=== PATIENT | male | born 1955 | race Caucasian/White ===

== ENCOUNTER → 2021-01-11 | Day surgery (SDC) | payer MEDICARE, MEDICAID ==
[2021-01-04 15:11] LABS: BASOPHILS % (AUTO) 0.4 % (0-1); EOSINOPHILS # (AUTO) 0.3 X10'3 (0-0.9); EOSINOPHILS % (AUTO) 3.2 % (0-6); LYMPHOCYTES # (AUTO) 2.8 X10'3 (1.1-4.8); LYMPHOCYTES % (AUTO) 29.5 % (21-51); MEAN CORPUSCULAR HGB CONC 33.7 g/dL (33.0-36.5); MEAN PLATELET VOLUME 7.1 FL (7.4-10.4); MONOCYTES % (AUTO) 10.7 % (2-12); NEUTROPHILS # (AUTO) 5.4 X10'3 (1.8-7.7); NEUTROPHILS % (AUTO) 56.2 % (42-75); PRE OP HEMATOCRIT 41.5 % (42.0-52.0); PRE OP PLATELET COUNT 278 X10'3 (140-440); RED BLOOD COUNT 4.37 X10'6 (4.70-6.10)
[2021-01-04 15:29] LABS: ALBUMIN 3.5 G/DL (3.4-5.0); ALBUMIN/GLOBULIN RATIO 1.1 (1.1-1.5); ALKALINE PHOSPHATASE 101 IU/L (46-116); BLOOD UREA NITROGEN 10 MG/DL (7-18); BUN/CREATININE RATIO 10.5 (5.4-32.0); CALCIUM 8.6 MG/DL (8.5-10.1); CHLORIDE 105 MMOL/L (99-107); CREATININE 0.95 MG/DL (0.60-1.10); PRE OP ALT 16 U/L (30-65); PRE OP ANION GAP 9 (8-16); PRE OP AST 19 U/L (10-37); PRE OP BILIRUB, TOTAL 0.2 MG/DL (0.0-1.0); PRE OP GLUCOSE 114 MG/DL (70-104); PRE OP POTASSIUM 4.1 MMOL/L (3.4-5.1); PRE OP PROTIME 10.5 SECONDS (9.0-12.0); PRE OP SODIUM 140 MMOL/L (135-145); TOTAL CARBON DIOXIDE 25.9 MMOL/L (24-32); TOTAL PROTEIN 6.7 G/DL (6.4-8.2); eGFR 80 ML/MIN
[~2021-01-11] VITALS: Ht 175.3 cm; Wt 73.0 kg
[2021-01-11] VITALS (13 sets, daily range): BP systolic 135–155; BP diastolic 80–95
[~2021-01-11] MED LIST: AMI25T PO; DIVA-76 PO; DOCUMENT DATE & TIME OF BETA-BLOCKER PO ONE; DULO-31 PO; GABA300C PO; LACO100T2 PO; LIDOcaine 1% W/epiNEPHrine 1:100,000 20ml vial ONE; LIDOcaine 2% (20mg/ml) 5ml vial ONE; PHEN100C12; SIMV-45 PO; TRAZ50TA54 PO; cefTAZidime 1gm inj ONE; cocaine 4% topical solution 4ml bottle ONE; dexamethasone sod phosphate 10mg/ml inj ONE; famotidine 20mg tablet PO ONE; fentaNYL/PF 50MCG/1 ML 2ML syringe ONE; meperidine/PF 25mg/ml syringe IV PRN; midazolam 1 mg/ML 2ml injection ONE; morphine 2 MG/ML inj. syringe IV PRN; morphine 4 MG/ML inj SYRINge IV PRN; mupirocin 2% ointment 22GM ONE; ondansetron/PF 4mg/2ml inj IV PRN; ondansetron/PF 4mg/2ml inj ONE; oxymetazoline 15 ML nasal spray NS ONE; proCHLORperazine 10 MG/2 ml inj IV PRN; propofol inj 20 ML IV ONE; ringers solution, lacted 1,000 ML IV SCH; salt irrigation nasal spray 45 ML SPRAY NS PRN; sevoflurane 250ml liquid IH ONE
[2021-01-11] MEDS: oxymetazoline 15 ML nasal spray NS PRN ×2 (09:36→09:39)
--- NOTE | 2021-01-11 13:07 | NUR ---
Received from OR via , accompanied by Anesthesiologist DR CR and report given by Anesthesiolgist. PT PRESENT WITH PIV 20G RIGHT HAND, BILATERAL SEPTOPLASTY. VSS. Addendum: 01/11/21 at 1321 by Neelam Rosa RN, RN Amended: Links added.
[2021-01-11] MEDS: meperidine/PF 25mg/ml syringe IV PRN ×2 (13:47→14:20)
--- NOTE | 2021-01-11 14:54 | NUR ---
ALL DISCHARGE CRITERIA HAS BEEN MET. VSS, PAIN AT A TOLERABLE LEVEL, VOIDING AND ABLE TO SAFELY AMBULATE AND TRANSFER SELF. IV TAKEN OUT WITHOUT ANY COMPLICATIONS. ALL DISCHARGE INSTRUCTIONS COVERED WITH PATIENT AND ALL QUESTIONS ANSWERED. PATIENT TAKEN OUT VIA WHEELCHAIR TO PERSONAL VEHICLE WHERE FAMILY/FRIEND DROVE PATIENT HOME. Addendum: 01/11/21 at 1602 by Neelam Rosa RN, RN Amended: Links added.
== END | disposition home or self-care (01) ==
LOC: PAS 08:51
PROVIDERS: ATTEND Otolaryngology
DX: J34.2 Deviated nasal septum (principal); J34.3 Hypertrophy of nasal turbinates; J32.8 Other chronic sinusitis; J33.8 Other polyp of sinus; J34.89 Other specified disorders of nose and nasal sinuses; D14.0 Benign neoplasm of middle ear, nasal cavity and accessory sinuses; F17.210 Nicotine dependence, cigarettes, uncomplicated; F12.90 Cannabis use, unspecified, uncomplicated; G40.909 Epilepsy, unspecified, not intractable, without status epilepticus; J44.9 Chronic obstructive pulmonary disease, unspecified; Z79.899 Other long term (current) drug therapy; Z79.01 Long term (current) use of anticoagulants
CPT/HCPCS: 30140; 30520; 31240; 31254; 31255; 31256; 31267; 36415; 61782; 76380; 80053; 82948; 85025; 85576; 85610; 85730; 87070; 87075; 87102; 93005; A6402; C9250; J0713; J1100; J2001; J2175; J2250; J2405; J2704; J3010; J7040; J7120; 88300; 88304; 88305; 88311; A4618; A7000

== ENCOUNTER 2021-11-07 10:35 | Emergency (ER) | payer MEDICARE, MEDICAID ==
[~2021-11-07] VITALS: Ht 175.3 cm; Wt 78.2 kg
[~2021-11-07 10:35] MED LIST changes: -DOCUMENT DATE & TIME OF BETA-BLOCKER PO ONE; -LIDOcaine 1% W/epiNEPHrine 1:100,000 20ml vial ONE; -LIDOcaine 2% (20mg/ml) 5ml vial ONE; -cefTAZidime 1gm inj ONE; -cocaine 4% topical solution 4ml bottle ONE; -dexamethasone sod phosphate 10mg/ml inj ONE; -famotidine 20mg tablet PO ONE; -fentaNYL/PF 50MCG/1 ML 2ML syringe ONE; -meperidine/PF 25mg/ml syringe IV PRN; -midazolam 1 mg/ML 2ml injection ONE; -morphine 2 MG/ML inj. syringe IV PRN; -morphine 4 MG/ML inj SYRINge IV PRN; -mupirocin 2% ointment 22GM ONE; -ondansetron/PF 4mg/2ml inj IV PRN; -ondansetron/PF 4mg/2ml inj ONE; -oxymetazoline 15 ML nasal spray NS ONE; -proCHLORperazine 10 MG/2 ml inj IV PRN; -propofol inj 20 ML IV ONE; -ringers solution, lacted 1,000 ML IV SCH; -salt irrigation nasal spray 45 ML SPRAY NS PRN; -sevoflurane 250ml liquid IH ONE
[2021-11-07 14:20] LABS: BASOPHILS % (AUTO) 0.3 % (0-1); EOSINOPHILS # (AUTO) 0.2 X10'3 (0-0.9); EOSINOPHILS % (AUTO) 2.2 % (0-6); HEMATOCRIT 37.6 % (42.0-52.0); HEMOGLOBIN 12.9 g/dl (14.0-17.9); LYMPHOCYTES # (AUTO) 2.9 X10'3 (1.1-4.8); LYMPHOCYTES % (AUTO) 37.6 % (21-51); MEAN CORPUSCULAR HEMOGLOBIN 31.5 PG (27.0-31.0); MEAN CORPUSCULAR HGB CONC 34.3 g/dL (33.0-36.5); MEAN CORPUSCULAR VOLUME 91.9 FL (78-98); MEAN PLATELET VOLUME 6.7 FL (7.4-10.4); MONOCYTES # (AUTO) 0.9 X10'3 (0-0.9); MONOCYTES % (AUTO) 12.1 % (2-12); NEUTROPHILS # (AUTO) 3.6 X10'3 (1.8-7.7); NEUTROPHILS % (AUTO) 47.8 % (42-75); PLATELET COUNT 301 X10'3 (140-440); RED BLOOD COUNT 4.09 X10'6 (4.70-6.10); RED CELL DISTRIBUTION WIDTH 13.4 % (11.5-14.5); WHITE BLOOD COUNT 7.6 X10'3 (4.5-11.0)
[2021-11-07 14:32] LABS: ALANINE AMINOTRANSFERASE 10 U/L (12-78); ALBUMIN 3.5 G/DL (3.4-5.0); ALBUMIN/GLOBULIN RATIO 1.1 (1.1-1.5); ALKALINE PHOSPHATASE 93 IU/L (46-116); ANION GAP 10 (8-16); ASPARTATE AMINO TRANSFERASE 13 U/L (10-37); BILIRUBIN,TOTAL 0.2 MG/DL (0.1-1.0); BLOOD UREA NITROGEN 7 MG/DL (7-18); BUN/CREATININE RATIO 9.7 (5.4-32.0); CALCIUM 8.7 MG/DL (8.5-10.1); CHLORIDE 102 MMOL/L (99-107); CREATININE 0.72 MG/DL (0.60-1.10); GLUCOSE 96 MG/DL (70-104); POTASSIUM 4.1 MMOL/L (3.5-5.1); SODIUM 137 MMOL/L (135-145); TOTAL CARBON DIOXIDE 25.1 MMOL/L (24-32); TOTAL PROTEIN 6.6 G/DL (6.4-8.2); eGFR > 90 ML/MIN
[2021-11-07 14:42] LABS: LIPASE 74 U/L (73-393); PHOSPHORUS 3.2 MG/DL (2.3-4.5)
[2021-11-07 14:45] LABS: ETHANOL < 0.010 GM/DL (0.0-0.010)
[2021-11-07 16:07] VITALS: BP 132/64
== END 2021-11-07 16:09 | disposition home or self-care (01) ==
LOC: ER 10:35
DX: R55 Syncope and collapse (principal); G40.909 Epilepsy, unspecified, not intractable, without status epilepticus; R42 Dizziness and giddiness; F12.90 Cannabis use, unspecified, uncomplicated; Z90.49 Acquired absence of other specified parts of digestive tract; Z86.19 Personal history of other infectious and parasitic diseases; Z79.899 Other long term (current) drug therapy
CPT/HCPCS: 36415; 70450; 71045; 80053; 80320; 83690; 83735; 83880; 84100; 84484; 85025; 93005; 99285

== ENCOUNTER 2022-05-25 08:49 | Emergency (ER) | payer MEDICARE, MEDICAID ==
[~2022-05-25] VITALS: Ht 175.3 cm; Wt 72.7 kg
[~2022-05-25 08:49] MED LIST changes: +ASPI-1071 PO; +GABA-530 PO; -GABA300C PO; +MECL-226 PO; +OLAN2.5T28 PO; +OLAN5TAB75 PO; -PHEN100C12; +PHEN100C12 PO; +PROP10TA10 PO
--- NOTE | 2022-05-25 08:55 | NUR ---
PT'S [employer] WORKER CALLED AND REQUESTED THAT SHE BE CALLED TO TRANSPORT PT HOME WHEN DCd NEENA CHAUDHRY:
[2022-05-25] MEDS ORDERED: levetiracetam inj 1,000 MG in normal saline 100ml IV soln 90 ML IV STA (09:36)
[2022-05-25] MEDS ORDERED: levetiracetam inj 1,000 MG in normal saline 100ml IV soln 100 ML IV STA (09:39)
[2022-05-25] MEDS ORDERED: normal saline 1000ML IV soln IVB ONE (09:40)
[2022-05-25 10:44] LABS: BASOPHILS % (AUTO) 0.5 % (0-1); EOSINOPHILS # (AUTO) 0.1 X10'3 (0-0.9); EOSINOPHILS % (AUTO) 1.4 % (0-6); HEMATOCRIT 37.7 % (42.0-52.0); LYMPHOCYTES # (AUTO) 2.2 X10'3 (1.1-4.8); MEAN CORPUSCULAR HEMOGLOBIN 32.3 PG (27.0-31.0); MEAN CORPUSCULAR HGB CONC 34.5 g/dL (33.0-36.5); MEAN CORPUSCULAR VOLUME 93.6 FL (78-98); MEAN PLATELET VOLUME 5.9 FL (7.4-10.4); MONOCYTES # (AUTO) 0.7 X10'3 (0-0.9); NEUTROPHILS # (AUTO) 4.1 X10'3 (1.8-7.7); NEUTROPHILS % (AUTO) 57.1 % (42-75); PLATELET COUNT 332 X10'3 (140-440); RED BLOOD COUNT 4.03 X10'6 (4.70-6.10); RED CELL DISTRIBUTION WIDTH 13.5 % (11.5-14.5); WHITE BLOOD COUNT 7.2 X10'3 (4.5-11.0)
[2022-05-25 10:48] LABS: CLARITY,URINE CLEAR (Clear); COLOR,URINE YELLOW (Yellow); GLUCOSE, URINE NEGATIVE (Neg); KETONES,URINE NEGATIVE (Neg); LEUKOCYTE ESTERASE ,URINE NEGATIVE (Neg); NITRITES, URINE NEGATIVE (Neg); OCCULT BLOOD,URINE NEGATIVE (Neg); PROTEIN,URINE NEGATIVE (Neg); UROBILINOGEN,URINE 0.2 E.U/dL (0.2-1.0)
[2022-05-25 10:50] LABS: UA COLLECTION TYPE NON-SPECIFIED
[2022-05-25 11:06] LABS: URINE AMPHETAMINE SCREEN NEGATIVE (Neg); URINE BARBITUATE SCREEN NEGATIVE (Neg); URINE BENZODIAZEPINES SCREEN NEGATIVE (Neg); URINE CANNABINOID SCREEN POSITIVE (Neg); URINE COCAINE SCREEN NEGATIVE (Neg); URINE METHADONE SCREEN NEGATIVE (Neg); URINE OPIATE SCREEN NEGATIVE (Neg); URINE PHENCYCLIDINE SCREEN NEGATIVE (Neg)
[2022-05-25 11:17] LABS: ALANINE AMINOTRANSFERASE 16 U/L (12-78); ALBUMIN 3.3 G/DL (3.4-5.0); ALKALINE PHOSPHATASE 94 IU/L (46-116); ANION GAP 9 (8-16); ASPARTATE AMINO TRANSFERASE 12 U/L (10-37); BILIRUBIN,TOTAL 0.1 MG/DL (0.1-1.0); BLOOD UREA NITROGEN 14 MG/DL (7-18); BUN/CREATININE RATIO 18.9 (5.4-32.0); CALCIUM 8.3 MG/DL (8.5-10.1); CHLORIDE 104 MMOL/L (99-107); CREATININE 0.74 MG/DL (0.60-1.10); GLUCOSE 94 MG/DL (70-104); POTASSIUM 4.3 MMOL/L (3.5-5.1); SODIUM 140 MMOL/L (135-145); TOTAL CARBON DIOXIDE 27.5 MMOL/L (24-32); TOTAL PROTEIN 6.5 G/DL (6.4-8.2); eGFR > 90 ML/MIN
[2022-05-25 11:19] LABS: ETHANOL < 0.010 GM/DL (0.0-0.010)
--- NOTE | 2022-05-25 12:00 | NUR ---
Pt given and understands d/c instructions. IV d/c'd, catheter was intact.
[2022-05-25 12:09] VITALS: BP 143/81
== END 2022-05-25 12:00 | disposition home or self-care (01) ==
LOC: ER 08:49
DX: R56.9 Unspecified convulsions (principal); F12.10 Cannabis abuse, uncomplicated; Z79.899 Other long term (current) drug therapy; Z79.82 Long term (current) use of aspirin; Z79.1 Long term (current) use of non-steroidal anti-inflammatories (NSAID); Z79.2 Long term (current) use of antibiotics
CPT/HCPCS: 36415; 71045; 80053; 80305; 80320; 81003; 85025; 96361; 96374; 99284; J1953; J3490; J7030

== ENCOUNTER 2022-11-06 11:30 | Emergency (ER) | payer MEDICARE, MEDICAID ==
[~2022-11-06] VITALS: Ht 175.3 cm; Wt 79.0 kg
[2022-11-06 11:41] VITALS: BP 130/79
== END 2022-11-06 15:31 | disposition left against medical advice (07) ==
LOC: ER 11:31
DX: R51.9 Headache, unspecified (principal); Z53.21 Procedure and treatment not carried out due to patient leaving prior to being seen by health care provider
CPT/HCPCS: 99281

== ENCOUNTER 2022-12-24 09:57 | Emergency (ER) | payer MEDICARE, MEDICAID ==
[~2022-12-24] VITALS: Ht 175.3 cm; Wt 77.3 kg
[2022-12-24 09:59] VITALS: BP 106/62
[2022-12-24] MEDS ORDERED: ACET-1015 PO (13:19)
[2022-12-24] MEDS ORDERED: DICL100G30 TOP (13:19)
== END 2022-12-24 13:51 | disposition home or self-care (01) ==
LOC: ER 09:58
DX: M25.561 Pain in right knee (principal); M54.9 Dorsalgia, unspecified; L03.114 Cellulitis of left upper limb; Z79.899 Other long term (current) drug therapy
CPT/HCPCS: 29530; 73564; 99283

== ENCOUNTER 2023-09-04 13:46 | Emergency (ER) | payer MEDICARE, MEDICAID ==
[~2023-09-04] VITALS: Ht 172.7 cm; Wt 68.4 kg
[~2023-09-04 13:46] MED LIST changes: +DICL100G59 TOP
[2023-09-04] MEDS ORDERED: naproxen 500mg tablet PO ONE (15:45)
[2023-09-04] MEDS ORDERED: HYDROcodone/acetaminophen 5mg/325mg tablet PO ONE (15:45)
[2023-09-04] MEDS ORDERED: HYDR-3972 PO (15:46)
[2023-09-04 16:14] VITALS: BP 133/66; PULSE 77; RESP 18; TEMP 98.1; O2SAT 100
== END 2023-09-04 16:23 | disposition home or self-care (01) ==
LOC: ER 13:47
DX: S42.001A Fracture of unspecified part of right clavicle, initial encounter for closed fracture (principal); W18.39XA Other fall on same level, initial encounter; F12.10 Cannabis abuse, uncomplicated; Y93.89 Activity, other specified; Y92.89 Other specified places as the place of occurrence of the external cause; Y99.8 Other external cause status
CPT/HCPCS: 73030; 99283; 99284; A4565

== ENCOUNTER 2023-11-25 23:07 | Emergency (ER) | payer OTHER, MEDICARE, MEDICAID ==
[~2023-11-25] VITALS: Ht 172.7 cm; Wt 69.0 kg
[2023-11-26] LABS: BASOPHILS % (AUTO) 0.3 % (0-1); EOSINOPHILS # (AUTO) 0.3 X10'3 (0-0.9); HEMATOCRIT 39.3 % (42.0-52.0); HEMOGLOBIN 13.5 g/dl (14.0-17.9); LYMPHOCYTES # (AUTO) 2.4 X10'3 (1.1-4.8); LYMPHOCYTES % (AUTO) 16.4 % (21-51); MEAN CORPUSCULAR HEMOGLOBIN 31.7 PG (27.0-31.0); MEAN CORPUSCULAR HGB CONC 34.2 g/dL (33.0-36.5); MEAN CORPUSCULAR VOLUME 92.7 FL (78-98); MEAN PLATELET VOLUME 6.2 FL (7.4-10.4); MONOCYTES # (AUTO) 1.8 X10'3 (0-0.9); MONOCYTES % (AUTO) 12.8 % (2-12); NEUTROPHILS # (AUTO) 9.8 X10'3 (1.8-7.7); NEUTROPHILS % (AUTO) 68.5 % (42-75); PLATELET COUNT 401 X10'3 (140-440); RED BLOOD COUNT 4.24 X10'6 (4.70-6.10); RED CELL DISTRIBUTION WIDTH 13.4 % (11.5-14.5); WHITE BLOOD COUNT 14.4 X10'3 (4.5-11.0)
[2023-11-26 00:24] LABS: ALBUMIN 3.2 G/DL (3.4-5.0); ANION GAP 11 (8-16); BLOOD UREA NITROGEN 14 MG/DL (7-18); BUN/CREATININE RATIO 14.7 (10.0-20.0); CALCIUM 8.8 MG/DL (8.5-10.1); CHLORIDE 97 MMOL/L (99-107); CREATININE 0.95 MG/DL (0.60-1.10); GLUCOSE 130 MG/DL (70-104); POTASSIUM 4.1 MMOL/L (3.5-5.1); PRO BRAIN NATRIURETIC PEPTIDE 49 PG/ML (0-125); SODIUM 132 MMOL/L (135-145); TOTAL CARBON DIOXIDE 24.3 MMOL/L (24-32); eCRCL 74 ML/MIN; eGFR 79 ML/MIN
[2023-11-26] MEDS: ondansetron/PF 4mg/2ml inj IV ONE ×2 (02:05→03:41)
[2023-11-26] MEDS: morphine 4 MG/ML inj SYRINge IV ONE ×2 (02:05→03:41)
[2023-11-26] MEDS: normal saline 1000ml 1,000 ML IV ONE (02:05)
[2023-11-26 03:39] LABS: PHENYTOIN (DILANTIN) 22.5 UG/ML (10.0-20.0); VALPROATE 60 UG/ML (50-100)
[2023-11-26] MEDS ORDERED: HYDR-3965 PO (06:24)
[2023-11-26 08:25] VITALS: BP 118/81; PULSE 90; RESP 14; TEMP 98.6; O2SAT 90
== END 2023-11-26 08:25 | disposition home or self-care (01) ==
LOC: ER 23:08
DX: G40.89 Other seizures (principal); S42.031A Displaced fracture of lateral end of right clavicle, initial encounter for closed fracture; S60.221A Contusion of right hand, initial encounter; F12.90 Cannabis use, unspecified, uncomplicated; X58.XXXA Exposure to other specified factors, initial encounter; Y93.89 Activity, other specified; Y92.89 Other specified places as the place of occurrence of the external cause; Y99.8 Other external cause status
CPT/HCPCS: 29125; 36415; 71045; 73080; 73090; 73110; 80048; 80164; 80185; 83880; 84484; 85025; 93005; 96361; 96374; 96375; 96376; 99285; J2270; J2405; J7030

== ENCOUNTER 2024-01-17 01:23 | Emergency (ER) | payer OTHER, MEDICARE, MEDICAID ==
[~2024-01-17] VITALS: Ht 172.7 cm; Wt 68.2 kg
[2024-01-17 03:40] VITALS: BP 118/76; PULSE 80; RESP 16; TEMP 98.2; O2SAT 96
== END 2024-01-17 03:54 | disposition home or self-care (01) ==
LOC: ER 01:23
DX: H81.10 Benign paroxysmal vertigo, unspecified ear (principal); R56.9 Unspecified convulsions; F12.90 Cannabis use, unspecified, uncomplicated; Z79.82 Long term (current) use of aspirin; Z79.899 Other long term (current) drug therapy; W01.0XXA Fall on same level from slipping, tripping and stumbling without subsequent striking against object, initial encounter; Y93.89 Activity, other specified; Y92.89 Other specified places as the place of occurrence of the external cause; Y99.8 Other external cause status
CPT/HCPCS: 70450; 72125; 99284

== ENCOUNTER 2024-08-27 08:26 | Emergency (ER) | payer OTHER, MEDICARE, MEDICAID ==
[~2024-08-27] VITALS: Ht 175.3 cm; Wt 68.2 kg
[~2024-08-27 08:26] MED LIST changes: -OLAN2.5T28 PO; +OLAN2.5T77 PO
[2024-08-27 08:44] VITALS: BP 99/71; PULSE 110; RESP 15; TEMP 97.8; O2SAT 99
[2024-08-27] MEDS ORDERED: AMOX-580 PO (10:53)
[2024-08-27] MEDS ORDERED: IBUP-862 PO (10:53)
[2024-08-27] MEDS ORDERED: HYDR-3965 PO (10:53)
== END 2024-08-27 11:06 | disposition home or self-care (01) ==
LOC: ER 08:27
DX: K04.7 Periapical abscess without sinus (principal); F12.90 Cannabis use, unspecified, uncomplicated; Z90.89 Acquired absence of other organs; Z79.82 Long term (current) use of aspirin
CPT/HCPCS: 99283

== ENCOUNTER 2024-08-28 13:58 | Emergency (ER) | payer OTHER, MEDICARE, MEDICAID ==
[~2024-08-28] VITALS: Ht 175.3 cm; Wt 66.8 kg
[~2024-08-28 13:58] MED LIST changes: +AMOX-580 PO; +HYDR-3965 PO; +IBUP-862 PO
[2024-08-28 14:02] VITALS: BP 108/75; PULSE 111; RESP 18; TEMP 98.8; O2SAT 97
[2024-08-29] MEDS ORDERED: HYDR-3972 PO (09:57)
== END 2024-08-28 19:30 | disposition left against medical advice (07) ==
LOC: ER 13:59
DX: L02.01 Cutaneous abscess of face (principal); Z53.21 Procedure and treatment not carried out due to patient leaving prior to being seen by health care provider

== ENCOUNTER 2024-08-29 08:46 | Emergency (ER) | payer OTHER, MEDICARE, MEDICAID ==
[~2024-08-29] VITALS: Ht 175.3 cm; Wt 65.6 kg
[2024-08-29] MEDS ORDERED: HYDR-3972 PO (09:57)
[2024-08-29 10:14] VITALS: BP 117/68; PULSE 98; RESP 16; TEMP 97.7; O2SAT 99
== END 2024-08-29 10:20 | disposition home or self-care (01) ==
LOC: ER 08:47
DX: K04.7 Periapical abscess without sinus (principal); F12.90 Cannabis use, unspecified, uncomplicated; Z90.89 Acquired absence of other organs; Z79.1 Long term (current) use of non-steroidal anti-inflammatories (NSAID); Z79.82 Long term (current) use of aspirin; Z79.899 Other long term (current) drug therapy
CPT/HCPCS: 99283

== ENCOUNTER 2024-10-23 10:36 | Emergency (ER) | payer OTHER, MEDICARE, MEDICAID ==
[~2024-10-23] VITALS: Ht 175.3 cm; Wt 68.2 kg
[~2024-10-23 10:36] MED LIST changes: -AMOX-580 PO; -HYDR-3965 PO
[2024-10-23] MEDS: meclizine 12.5mg tablet PO ONE (13:21)
[2024-10-23 13:57] VITALS: BP 121/78; PULSE 82; RESP 16; TEMP 97.2; O2SAT 99
[2024-10-23] MEDS: scopolamine 1MG/72H patch 1 PATCH PATCH.TD.3 TD SCH (14:10)
== END 2024-10-23 14:13 | disposition home or self-care (01) ==
LOC: ER 10:37
DX: R42 Dizziness and giddiness (principal); F12.90 Cannabis use, unspecified, uncomplicated; Z90.89 Acquired absence of other organs
CPT/HCPCS: 99284; J8597